=== PATIENT | male | born 1940 | race Caucasian/White ===

== ENCOUNTER → 2018-11-07 | Outpatient (CLI) | payer MEDICARE ==
[~2018-11-07] VITALS: Ht 162.6 cm; Wt 66.2 kg
[~2018-11-07] MED LIST: AMLO10TA82 PO; ENAL1TAB9 PO; HCT25T PO; LORA0.5T PO; NABUMETONE BC; NS IV 1000 ML 1,000 ML IV ONE; NS IV 1000 ML 1,000 ML ONE; SIMV20TA3 PO; TYLENOL
[2018-11-07 11:45] VITALS: BP 135/83
== END ==
LOC: SDC 11:29
PROVIDERS: ATTEND Physician Assistant
DX: E87.1 Hypo-osmolality and hyponatremia (principal)
CPT/HCPCS: 96360; 96361

== ENCOUNTER → 2021-10-15 | Outpatient (CLI) | payer MEDICARE ==
[~2021-10-15] MED LIST changes: -NS IV 1000 ML 1,000 ML IV ONE; -NS IV 1000 ML 1,000 ML ONE
== END ==
LOC: CARD 09:05
PROVIDERS: ATTEND Family Medicine
DX: I34.1 Nonrheumatic mitral (valve) prolapse (principal); I34.0 Nonrheumatic mitral (valve) insufficiency; I51.7 Cardiomegaly
CPT/HCPCS: 93306

== ENCOUNTER → 2021-11-30 | Outpatient (CLI) | payer MEDICARE ==
[~2021-11-30] MED LIST changes: +CATHETER FLUSH 10 ML SYR IVP PRN
[2021-11-30 08:58] VITALS: BP 147/87
--- NOTE | 2021-11-30 12:01 | Cardiology Stress Test Report ---
Stress Test Report Date of Procedure/Referring: Date of Procedure: Nov 30, 2021 PCP Kierra Brenner MD Admitting Physician Admitting Physician: Attending Physician: Anjel Dowd MD Indications: HTN Baseline Heart Rate: 72 Baseline Blood Pressure: Blood Pressure Systolic: 147 Blood Pressure Diastolic: 87 Vital Signs Date Time Temp Pulse Resp B/P (MAP) Pulse Ox O2 Delivery O2 Flow Rate FiO2 11/30/21 08:58 72 16 147/87 (107) 98 Room Air Baseline Vital Signs Vital Signs Date Time Temp Pulse Resp B/P (MAP) Pulse Ox O2 Delivery O2 Flow Rate FiO2 11/30/21 08:58 72 16 147/87 (107) 98 Room Air Baseline EKG: Baseline EKG: RBBB Summary: After explaining the procedure and details to the patient, he signed the consent and was brought to the stress nuclear laboratory. Patient exercised on standard John protocol, EKG, heart rate and blood pressure were monitored continuously, resting and stress doses of radio tracer were injected, imaging was acquired and reviewed in the short axis, horizontal long axis and vertical long axis views Patient was able to exercise for a total of 4.30 minutes on John protocol, METs 6.4 Maximum heart rate 125 Maximum blood pressure 169/93 Stress EKG, Minimal nondiagnostic changes Recovery EKG, Return to baseline TID: 0.91 SSS: 1 SDS: 1 EF: 65 Conclusion: 1. Fair exercise tolerance for a total of 4 minutes 30 seconds on standard John protocol, 6.4 METS achieving 89% of maximum expected heart rate 2. Appropriate heart rate and blood pressure response to exercise return to baseline during recovery 3. Baseline right bundle branch block with nondiagnostic EKG changes with exercise return to baseline during recovery 4. No significant ischemia or infarction on SPECT images 5. Normal left ventricular size, ejection fraction 65% Copy Copies To 1: CELESTE BELLO MD, BASHAR J MD Nov 30, 2021 12:01
== END ==
LOC: CARD 07:30
PROVIDERS: ATTEND Internal Medicine Cardiovascular Disease
DX: I10 Essential (primary) hypertension (principal); I25.10 Atherosclerotic heart disease of native coronary artery without angina pectoris
CPT/HCPCS: 78452; 93017; A9502